=== PATIENT | male | born 1985 | race Caucasian/White ===

== ENCOUNTER → 2017-03-07 | Outpatient (CLI) | payer OTHER ==
--- NOTE | ~2017-03-07 | PFR/MVV ---
[facility] [place] [address] PULMONARY FUNCTION MVV/REPORT Name: KRISTILUNA ROBIN Room #: REG [facility]#: [id number] Admission: 03/07/17 Attend Phys: Topher Ayala MD Discharge: Date of : 87 Report #: [id number] THIS REPORT FOR: //name// >> SPIROMETRY: (BTPS) Height: in cm Weight: lbs kg Exam Date: PRE-RX POST-RX PRED BEST %PRED BEST %PRED %CHG FVC LITERS . . . . . . FEV1 LITERS . . . . . . FEV1/FVC % . . . . . . ZDZ14-67% L/Sec . . . . . . PEF L/SEC . . . . . . FEF50/FIF50 UNITLESS . . . . . . MVV L/Min . . . f 1/Min . . . >> LUNG VOLUMES: (BTPS) PRE-RX POST-RX PRED AVG %PRED AVG %PRED %CHG VC Liters . . . . . . TLC Liters . . . . . . RV Liters . . . . . . RV/TLC % . . . . . . FRC PL Liters . . . . . . FRC N2 Liters . . . . . . ERV Liters . . . . . . IC Liters . . . . . . >> DIFFUSION: DLCO ml/Min/mmHg . . . . . . DL Miguel ml/Min/mmHg . . . . . . DLCO/VA ml/Min/mmHg . . . . . . VA Liters . . . . . . COMMENTS: COMMENTS: >> RESISTANCE: [facility] [address] [place] [address] PULMONARY FUNCTION MVV/REPORT Name: KRISTILUNAMARIAN KELLY Room #: REG [facility]#: [id number] Admission: 03/07/17 Attend Phys: Topher Ayala MD Discharge: Date of : 87 Report #: [id number] PRE-RX PRED AVG %PRED Raw Total cmH20/L/Sec . . . Raw Insp cmH20/L/Sec . . . Raw Exp cmH20/L/Sec . . . Raw cmH20/L/Sec . . . Gaw L/Sec/cmH20 . . . sRaw cmH20 Sec . . . sGaw l/cmH20 Sec . . . Vtq Liters . . . # = OUTSIDE 95% CONFIDENCE INTERVAL CALIBRATION: PRED: 3.00 ACTUAL: EXP 3.01 INSP 3.02 [facility]-[id number] [facility]- [id number] >> INTERPRETATION/IMPRESSION: CC: Topher NULL physician/PCP DATE OF SERVICE: 03/07/2017 DATE OF STUDY: 03/07/2017 NOTATION: For pulmonary function study reveals a mixed obstructive and restrictive pattern. Findings most consistent with a moderate restriction. Vital capacity has reduced moderately to 61% of predicted. There was improvement postbronchodilators suggesting bronchodilator response. Total lung capacity is mild to moderately reduced. DLCO is normal. Residual volume is elevated compared to total lung capacity and the residual volume to total lung capacity ratio suggesting significant air trapping also seen in obstructive lung diseases. OVERALL IMPRESSION: This is a moderate mixed obstructive and restrictive pattern with response to bronchodilators. Further pulmonary evaluation should be considered to evaluate for such combination of disease processes. By: Jamal Khan MD /nt
== END ==
LOC: PUL 09:36
DX: S92.901A Unspecified fracture of right foot, initial encounter for closed fracture (principal); R06.02 Shortness of breath; X58.XXXA Exposure to other specified factors, initial encounter; Y93.89 Activity, other specified; Y92.89 Other specified places as the place of occurrence of the external cause; Y99.8 Other external cause status